=== PATIENT | male | born 1990 | race American Indian/Alaskan Native ===

== ENCOUNTER 2020-06-02 10:57 | Emergency (ER) | payer SELFPAY ==
[2020-06-02 11:11] VITALS: BP 118/75
--- NOTE | 2020-06-02 11:28 | Emergency Department Report ---
Chief Complaint: Headache Stated Complaint: HEAD PAIN Time Seen by Provider: 06/02/20 11:22 - HPI History of Present Illness: pt is a 29 yo male who presents to the ED with c/o right lower dental pain that began a couple of days ago. he has a crack present to that tooth. he states he has an appointment with a dentist on 06/08/2020. he denies any fever, facial swelling, difficulty swallowing. he is tolerating PO intake without difficulty. vitals are normal on exam: right lower back molar with small hole present, no edema or induration of the gumline, no facial swelling, uvula is midline, no uvular edema or deviation, no tongue elevation, no muffled voice Examination appears consistent with dental carry and cracked tooth No signs of dental abscess, infected dental carry, Sd discussed supportive care and symptomatic treat pt given dental referrals advised pt may use a dental puddy over the counter. may do warm salt water gargles. may alternate 600mg of ibuprofen and then 650 mg of tylenol every 6-8 hours as needed for pain. follow up with a dentist. it is very important that you follow up. return to the emergency room for any new or worsening symptoms. - Exam Vital Signs: Vital Signs 06/02/20 11:10 Temperature 98.2 F Pulse Rate 61 Respiratory 14 Rate Blood Pressure 118/75 [Left] O2 Sat by Pulse 97 Oximetry MSE screening note: Focused history and physical exam performed. ED Disposition for MSE Clinical Impression: Dental caries, Cracked tooth, Dentalgia Disposition: MED SCREENING EXAM-LEFT Is pt being admited?: No Does the pt Need Aspirin: No Condition: Stable Instructions: Dental Caries (ED), Toothache (ED) Additional Instructions: may use a dental puddy over the counter. may do warm salt water gargles. may alternate 600mg of ibuprofen and then 650 mg of tylenol every 6-8 hours as needed for pain. follow up with a dentist. it is very important that you follow up. return to the emergency room for any new or worsening symptoms. Referrals: [facility] [Outside] - 2-3 Days [facility] [Outside] - 2-3 Days Time of Disposition: 11:27 Print Language: HEBREW
== END 2020-06-02 11:42 | disposition left against medical advice (07) ==
LOC: ED 10:57
DX: R51 Headache (principal); Z53.21 Procedure and treatment not carried out due to patient leaving prior to being seen by health care provider

== ENCOUNTER 2020-09-11 16:40 | Emergency (ER) | payer SELFPAY ==
[2020-09-11 18:29] VITALS: BP 142/94
--- NOTE | 2020-09-11 19:05 | Emergency Department Report ---
Chief Complaint: Urogenital-Male Stated Complaint: STD CHECK Time Seen by Provider: 09/11/20 19:03 - HPI History of Present Illness: Patient is a 29-year-old male presents emergency room with complaints of a routine STD panel. He states that he just wants to be checked out. He states he is completely asymptomatic. He does not report any penile discharge, dysuria, urinary retention, hematuria, abdominal pain, pain or swelling testicles, back pain, any symptoms at all. He denies any past medical history. No allergies to medications. Vitals are stable On exam: Non toxic appearing, no acute distress atraumatic, normocephalic normal appearance of the eyes, EOMI, no periorbital edema or ecchymosis moist mucus membranes No respiratory distress, no accessory muscle use A&O x4, no focal neuro deficit : pt deferred Patient is presenting for routine STD screening He is completely asymptomatic Patient will be referred to the health department in order to receive testing Discussed return precautions with patient Medical screening examination performed and there is no threat to life or limb at this time - Exam Vital Signs: Vital Signs 09/11/20 18:28 Temperature 98 F Pulse Rate 60 Respiratory 16 Rate Blood Pressure 142/94 [Right] O2 Sat by Pulse 97 Oximetry MSE screening note: Focused history and physical exam performed. Due to findings the following was ordered: ED Disposition for MSE Clinical Impression: Encounter for medical screening examination Disposition: MED SCREENING EXAM-LEFT Is pt being admited?: No Does the pt Need Aspirin: No Condition: Stable Additional Instructions: please follow-up with the health department or walk-in clinic for full STD panel. Please have any partner tested and treated as well. Avoid sexual intercourse. Return to emergency room for any new or worsening symptoms. walk in clinic: [facility] Address: [address] [place] [id number] Referrals: [facility] [Outside] - 3-5 Days Time of Disposition: 19:04 Print Language: FRENCH
== END 2020-09-11 19:05 | disposition left against medical advice (07) ==
LOC: ED 16:40
DX: Z20.2 Contact with and (suspected) exposure to infections with a predominantly sexual mode of transmission (principal); Z53.21 Procedure and treatment not carried out due to patient leaving prior to being seen by health care provider

== ENCOUNTER 2021-04-06 18:00 | Emergency (ER) | payer SELFPAY ==
[2021-04-06 18:57] VITALS: BP 126/58
--- NOTE | 2021-04-06 20:59 | Emergency Department Report ---
ED ENT HPI - General Chief complaint: Dental/Oral Stated complaint: POSS ABCESS Time Seen by Provider: 04/06/21 19:32 Source: patient Mode of arrival: Ambulatory Limitations: No Limitations - History of Present Illness Initial comments: Patient is a 30-year-old male presents emergency room with complaints of a dental abscess that began 2 days ago. He has associated left upper dental pain. He states he has some mild swelling of his left upper face. He denies any fever, nausea, vomiting, diarrhea, difficulty swallowing, difficulty breathing. She states he last saw dentist approximately 6 months ago and had a tooth extraction. No past medical history. No allergies to medications. - Related Data Previous Rx's Medication Instructions Recorded Last Taken Type Chlorhexidine Mouthwash [Peridex] 15 ml MM BID #1 bottle 04/06/21 Unknown Rx Ibuprofen [Motrin 600 MG tab] 600 mg PO Q8H PRN #20 tablet 04/06/21 Unknown Rx Penicillin Vk [Veetids TAB] 500 mg PO QID 7 Days #56 tablet 04/06/21 Unknown Rx Allergies Allergy/AdvReac Type Severity Reaction Status Date / Time No Known Allergies Allergy Unverified 06/02/20 11:10 ED Dental HPI - General Chief complaint: Dental/Oral Stated complaint: POSS ABCESS Time Seen by Provider: 04/06/21 19:32 Source: patient Mode of arrival: Ambulatory Limitations: No Limitations - Related Data Previous Rx's Medication Instructions Recorded Last Taken Type Chlorhexidine Mouthwash [Peridex] 15 ml MM BID #1 bottle 04/06/21 Unknown Rx Ibuprofen [Motrin 600 MG tab] 600 mg PO Q8H PRN #20 tablet 04/06/21 Unknown Rx Penicillin Vk [Veetids TAB] 500 mg PO QID 7 Days #56 tablet 04/06/21 Unknown Rx Allergies Allergy/AdvReac Type Severity Reaction Status Date / Time No Known Allergies Allergy Unverified 06/02/20 11:10 ED Review of Systems ROS: Stated complaint: POSS ABCESS Other details as noted in HPI Comment: All other systems reviewed and negative ED Past Medical Hx - Past Medical History Previous Medical History?: No - Surgical History Past Surgical History?: No - Social History Smoking Status: Never Smoker Substance Use Type: Alcohol, Marijuana - Medications Home Medications: Home Medications Medication Instructions Recorded Confirmed Last Taken Type Chlorhexidine Mouthwash [Peridex] 15 ml MM BID #1 bottle 04/06/21 Unknown Rx Ibuprofen [Motrin 600 MG tab] 600 mg PO Q8H PRN #20 tablet 04/06/21 Unknown Rx Penicillin Vk [Veetids TAB] 500 mg PO QID 7 Days #56 tablet 04/06/21 Unknown Rx ED Physical Exam - General Limitations: No Limitations General appearance: alert, in no apparent distress - Head Head exam: Present: atraumatic, normocephalic - Eye Eye exam: Present: normal appearance - ENT ENT exam: Present: mucous membranes moist, other (left upper gumline edema, mild left facial edema in the maxillary region, no erythema, no crepitus, uvula is midline, no uvular edema or deviation, no trismus, no tongue elevation, no muffled voice, no trismus, no submandibular edema) - Respiratory Respiratory exam: Absent: respiratory distress, accessory muscle use - Neurological Exam Neurological exam: Present: alert, oriented X3 - Psychiatric Psychiatric exam: Present: normal affect, normal mood - Skin Skin exam: Present: warm, dry, intact ED Course Vital Signs 04/06/21 18:55 Temperature 98.8 F Pulse Rate 58 L Respiratory 18 Rate Blood Pressure 126/58 O2 Sat by Pulse 100 Oximetry ED Medical Decision Making - Medical Decision Making Patient is a 30-year-old male presents emergency room with complaints of a dental abscess that began 2 days ago. He has associated left upper dental pain. He states he has some mild swelling of his left upper face. He denies any fever, nausea, vomiting, diarrhea, difficulty swallowing, difficulty breathing. She states he last saw dentist approximately 6 months ago and had a tooth extraction. No past medical history. No allergies to medications. Vitals are stable. On exam:left upper gumline edema, mild left facial edema in the maxillary region, no erythema, no crepitus, uvula is midline, no uvular edema or deviation, no trismus, no tongue elevation, no muffled voice, no trismus, no submandibular edema. Examination appears consistent with dental abscess. Patient given prescription for medications. Advised patient Please take medication as prescribed. Follow-up with a dentist. it is very important that you follow-up. Return to emergency room for any new or worsening symptoms. Critical care attestation.: If time is entered above; I have spent that time in minutes in the direct care of this critically ill patient, excluding procedure time. ED Disposition Clinical Impression: Dental abscess Disposition: DC- TO HOME OR SELFCARE Is pt being admited?: No Does the pt Need Aspirin: No Condition: Stable Instructions: Dental Abscess Additional Instructions: Please take medication as prescribed. Follow-up with a dentist. it is very important that you follow-up. Return to emergency room for any new or worsening symptoms. Prescriptions: Ibuprofen [Motrin 600 MG tab] 600 mg PO Q8H PRN #20 tablet PRN Reason: Pain Chlorhexidine Mouthwash [Peridex] 15 ml MM BID #1 bottle Penicillin Vk [Veetids TAB] 500 mg PO QID 7 Days #56 tablet Referrals: your, dentist [Other] - 2-3 Days Time of Disposition: 20:56 Print Language: ECUADOREAN
== END 2021-04-06 21:09 | disposition home or self-care (01) ==
LOC: ED 18:00
DX: K04.7 Periapical abscess without sinus (principal); F12.90 Cannabis use, unspecified, uncomplicated; Z79.899 Other long term (current) drug therapy
CPT/HCPCS: 99281